=== PATIENT | female | born 1985 | race African-American/Black ===

== ENCOUNTER 2020-07-26 17:36 | Emergency (ER) | payer OTHER ==
[2020-07-26] MEDS ORDERED: Dexamethasone 10 MG/ML VIAL ONE (21:02)
== END 2020-07-26 21:15 | disposition home or self-care (01) ==
LOC: ERS 17:36
DX: J45.909 Unspecified asthma, uncomplicated (principal)
CPT/HCPCS: 99284; J1100

== ENCOUNTER 2021-02-01 00:21 | Emergency (ER) | payer OTHER | END 2021-02-01 01:27 | disposition left against medical advice (07) | LOC: ERS 00:21 | DX: Z53.21 Procedure and treatment not carried out due to patient leaving prior to being seen by health care provider (principal) | CPT/HCPCS: 93005 ==